=== PATIENT | female | born 1975 | race Caucasian/White ===

== ENCOUNTER → 2017-01-27 | Outpatient (CLI) | payer BC ==
[~2017-01-27] MED LIST: GLUCOTROL5 MG PO; LISINOPRIL-HCT1 EACH PO; NORCO 7.5-3251 EACH PO; TOPROL XL50 MG PO; VIT D PO; ZANTAC150 MG PO; ZYRTEC10 MG PO
== END ==
LOC: MAMO 15:35
DX: Z12.31 Encounter for screening mammogram for malignant neoplasm of breast (principal)
CPT/HCPCS: G0202

== ENCOUNTER → 2021-06-25 | Outpatient (CLI) | payer BC | LOC: MAMO 14:58 | DX: Z12.31 Encounter for screening mammogram for malignant neoplasm of breast (principal) | CPT/HCPCS: 77063; 77067 ==

== ENCOUNTER → 2021-07-29 | Outpatient (CLI) | payer BC | LOC: DTC 13:47 | DX: Z71.3 Dietary counseling and surveillance (principal); E11.9 Type 2 diabetes mellitus without complications; E66.09 Other obesity due to excess calories; Z68.36 Body mass index [BMI] 36.0-36.9, adult | CPT/HCPCS: G0108 ==

== ENCOUNTER → 2022-01-07 | Outpatient (CLI) | payer BC ==
[2022-01-07 07:18] LABS: HEMOGLOBIN 13.7 gm/dl (12.3-15.3); RED BLOOD COUNT 4.64 M/UL (4.00-5.10); WHITE BLOOD COUNT 11.2 K/UL (4.5-11.0)
[2022-01-07 07:36] LABS: BUN/CREATININE RATIO 14 (0-10)
[2022-01-08 08:14] LABS: CREATININE, URINE 358.4 mg/dL (Not Estab.)
== END ==
LOC: LAB 06:39
PROVIDERS: Physician Assistant
DX: E78.2 Mixed hyperlipidemia (principal); E03.9 Hypothyroidism, unspecified; E11.9 Type 2 diabetes mellitus without complications; R53.83 Other fatigue; D72.829 Elevated white blood cell count, unspecified
CPT/HCPCS: 36415; 80053; 80061; 82043; 82570; 82607; 83036; 84439; 84443; 85025